=== PATIENT | female | born 1960 | race Hispanic/Latino ===

== ENCOUNTER 2018-03-08 07:23 | Day surgery (SDC) | payer MEDICAID ==
[~2018-03-08] VITALS: Ht 154.9 cm; Wt 70.9 kg
[~2018-03-08 07:23] MED LIST: ASPI-1181 PO; ATOR40TA71 PO; ESOM40CA PO; LISI10TA7 PO; METO25TA6 PO; SODIUM CHLORIDE 0.9% 1000ML 1,000 ML IV ONE
[2018-03-08 07:39] VITALS: BP 148/64
== END 2018-03-08 08:59 | disposition home or self-care (01) ==
LOC: DAH 07:23 → ENDO 07:23
PROVIDERS: ATTEND Internal Medicine Gastroenterology
DX: K29.50 Unspecified chronic gastritis without bleeding (principal); K21.0 Gastro-esophageal reflux disease with esophagitis; K31.89 Other diseases of stomach and duodenum; K44.9 Diaphragmatic hernia without obstruction or gangrene; I10 Essential (primary) hypertension; E66.9 Obesity, unspecified; Z79.899 Other long term (current) drug therapy; Z79.82 Long term (current) use of aspirin
CPT/HCPCS: 43239; 88305; 88312; 88342; A4606; J7030